=== PATIENT | female | born 1960 | race Hispanic/Latino ===

== ENCOUNTER 2018-09-23 17:49 | Emergency (ER) | payer BC ==
[2018-09-23 17:49] VITALS: BMI 28.3
[2018-09-23 17:53] VITALS: RESP 18; TEMP 98.9; O2SAT 100
[2018-09-23] MEDS ORDERED: Sodium Chloride 0.9% 1,000 ML IV STA (18:31)
--- NOTE | 2018-09-23 18:31 | ED PDOC ---
HPI: Back Time Seen by Provider: 09/23/18 18:09 Chief Complaint (Nursing): Back Pain Chief Complaint (Provider): Back Pain History Per: Patient Additional Complaint(s): Sudden onset right flank pain radiating to RLQ - onset 1 hour [employer] to ED Past Medical History Vital Signs: Last Vital Signs Temp 98.9 F 09/23/18 17:51 Pulse 67 09/23/18 17:51 Resp 18 09/23/18 17:51 BP 127/55 L 09/23/18 17:51 Pulse Ox 100 09/23/18 17:51 - Medical History PMH: Diverticulitis, Migraine Denies: Depression - Home Medications Home Medications: Ambulatory Orders Medication Instructions Recorded Eletriptan Hydrobromide [Relpax] 40 mg PO PRN PRN 12/10/12 Estrogen Patch 12/10/12 Methylprednisolone [Medrol] 4 mg PO DAILY #1 tab 12/10/12 Zolpidem Tartrate [Ambien] 10 mg PO HS 12/10/12 - Allergies Allergies/Adverse Reactions: Allergies Allergy/AdvReac Type Severity Reaction Status Date / Time No Known Allergies Allergy Verified 09/23/18 17:51 - ECG O2 Sat by Pulse Oximetry: 100 Disposition - Disposition
[2018-09-23 19:13] LABS: BASO # 0.1 K/uL (0.0-0.2); BASO % 1.3 % (0.0-2.0); EOS # 0.2 K/uL (0.0-0.7); EOS % 2.5 % (0.0-4.0); HEMOGLOBIN 13.4 g/dL (12.0-16.0); LYMPH # 2.6 K/uL (1.0-4.3); LYMPH % 41.9 % (20.0-40.0); MEAN CELL VOLUME 85.1 fl (81.0-99.0); MEAN CORPUSCULAR HEMOGLOBIN 28.1 pg (27.0-31.0); MEAN PLATELET VOLUME 8.8 fl (7.2-11.7); MONO # 0.6 K/uL (0.0-0.8); MONO % 9.1 % (0.0-10.0); NEUT # 2.8 K/uL (1.8-7.0); NEUT % 45.2 % (50.0-75.0); NRBC % 0.1 % (0.0-0.0); RBC 4.78 Mil/uL (3.80-5.20); RED CELL DISTRIBUTION WIDTH 13.4 % (11.5-14.5); WHITE BLOOD COUNT 6.3 K/uL (4.8-10.8)
[2018-09-23 19:14] LABS: SQUAMOUS EPITHIAL 17 /hpf (0-5); URINE BACTERIA RARE (<OCC); URINE BILIRUBIN NEGATIVE (NEGATIVE); URINE BLOOD LARGE (NEGATIVE); URINE CLARITY SLIGHTY-CLOUDY (Clear); URINE COLOR YELLOW (YELLOW); URINE GLUCOSE (UA) NEG (Normal); URINE LEUKOCYTE ESTERASE NEG Leu/uL (Negative); URINE PROTEIN 30 mg/dL (NEGATIVE); URINE UROBILINOGEN 0.2-1.0 mg/dL (0.2-1.0)
[2018-09-23 19:19] LABS: ALB/GLOB RATIO 1.2 (1.0-2.1); ALBUMIN 4.9 g/dL (3.5-5.0); AMYLASE 108 U/L (30-110); BLOOD UREA NITROGEN 15 mg/dl (7-17); CALCIUM 9.7 mg/dL (8.4-10.2); GFR NON-AFRICAN AMERICAN > 60; LIPASE 89 U/L (23-300)
[2018-09-23 19:25] LABS: ALT/SGPT 32 U/L (9-52); AST/SGOT 34 U/L (14-36)
--- NOTE | 2018-09-23 21:01 | ED PDOC ---
- Laboratory Results Result Diagrams: 09/23/18 18:45 09/23/18 18:45 - ECG O2 Sat by Pulse Oximetry: 100 - Progress ED Course And Treament: Case endorsed to staff writer from [facility] pending CT and re-eval CLINICAL HISTORY: Right flank pain. TECHNIQUE: Multiple axial, coronal, sagittal CT images were obtained through the abdomen and pelvis without administration of oral or IV contrast material. Total DLP equals 657.36 mGy.cm. COMMENTS: The liver is of uniform attenuation without mass or defect. There is no intra or extrahepatic biliary ductal dilatation. The spleen is normal. The gallbladder is within normal limits. The pancreas is of normal contour and attenuation characteristics. There is no evidence of adrenal mass. There is a 3.5 mm non-obstructing calculus noted in the mid to lower pole of the right kidney. There are several punctate, non-obstructing calculi noted in the mid pole of the right as well as left kidney. There is evidence of right hydronephrosis; however, no evidence of obstructing stone. It is most consistent with a recently passed calculus. There is no evidence for appendicitis. There is no bowel wall thickening. No evidence for small or large bowel obstruction. There is no evidence of abdominal ascites or lymphadenopathy. There is no evidence of intrinsic or extrinsic bladder mass. There is no pelvic ascites or lymphadenopathy. There are multiple uterine calcifications present consistent with fibroids. Images of the lung bases show no evidence of pleural or parenchymal mass. There are no pleural effusions. The bony structures are free of lytic or blastic lesions. IMPRESSION: 1. Bilateral renal calculi. 2. Right hydronephrosis; however, no evidence of obstructing stone. It is most consistent with a recently passed calculus.. 3. Multiple uterine calcifications consistent with fibroids. On re-eval, patient resting comfortably; states pain resolved. Tolerating PO Patient educated on findings, discharged with rx Naproxen, Zofran Advised follow up Urology Return precautions given Disposition - Clinical Impression Clinical Impression: Renal colic on right side, Uterine fibroid - POA Present On Arrival: None - Disposition Referrals: Acosta Banerjee MD [Staff Provider] - Disposition: Routine/Home Disposition Time: 21:10 Condition: IMPROVED Prescriptions: Naproxen [Naprosyn] 500 mg PO Q12 PRN #20 tablet PRN Reason: Pain, Moderate (4-7) Ondansetron ODT [Zofran ODT] 4 mg PO Q8 PRN #10 odt PRN Reason: Nausea/Vomiting Instructions: Renal Colic Forms: [facility] ([place])
[2018-09-23 21:06] VITALS: BP 131/86; PULSE 64
--- NOTE | 2018-09-24 10:03 | RAD ---
Date of service: 09/23/2018 HISTORY: abdominal pain COMPARISON: None available. FINDINGS: LUNGS: No active pulmonary disease. PLEURA: No significant pleural effusion identified, no pneumothorax apparent. CARDIOVASCULAR: No aortic atherosclerotic calcification present. Normal cardiac size. No pulmonary vascular congestion. OSSEOUS STRUCTURES: No significant abnormalities. VISUALIZED UPPER ABDOMEN: Normal. OTHER FINDINGS: None. IMPRESSION: No acute cardiopulmonary disease appreciated.
--- NOTE | 2018-09-24 11:25 | CT ---
Date of service: 09/23/2018 PROCEDURE: CT Abdomen and Pelvis without intravenous contrast HISTORY: R flank pain COMPARISON: None. TECHNIQUE: Helical CT of the abdomen and pelvis was performed without oral or intravenous contrast as per referring physician request. Coronal and sagittal reformats were generated. Contrast dose: None Radiation dose: Total exam DLP = 657.36 mGy-cm. This CT exam was performed using one or more of the following dose reduction techniques: Automated exposure control, adjustment of the mA and/or kV according to patient size, and/or use of iterative reconstruction technique. FINDINGS: LOWER THORAX: Unremarkable. LIVER: Unremarkable. No gross lesion or ductal dilatation. GALLBLADDER AND BILE DUCTS: Unremarkable. PANCREAS: Unremarkable. No gross lesion or ductal dilatation. SPLEEN: Unremarkable. ADRENALS: Unremarkable. No mass. KIDNEYS AND URETERS: Multiple punctate intrarenal calculi identified at the right greater than left kidney with mild hydronephrosis appreciated without hydroureter. No definite calculus is seen in the urinary bladder or definitively in the course of the right ureter which is somewhat obscured by vessels and bowel at the right hemipelvis. The pattern may reflect residual right hydronephrosis status post expulsion of right ureteral calculus even potentially from the urinary bladder. Trace right perinephric reaction is identified. No left hydronephrosis. VASCULATURE: Nonaneurysmal abdominal aortic calcific atherosclerotic changes are identified. BOWEL: Unremarkable. No obstruction. No gross mural thickening. APPENDIX: Unremarkable. Normal appendix. PERITONEUM: Unremarkable. No free fluid. No free air. LYMPH NODES: Unremarkable. No enlarged lymph nodes. BLADDER: Unremarkable. REPRODUCTIVE: Lobular partially calcified uterine changes suggestive of multiple fibroids. No suspicious adnexal findings grossly evident. BONES: No acute fracture. OTHER FINDINGS: None. IMPRESSION: 1. Likely expelled obstructing right ureteral calculus with residual mild hydronephrosis remaining at the right kidney including the pelvis. Multiple punctate intrarenal calculus seen in the right greater than left kidney with no left hydronephrosis appreciated. Urinary bladder is unremarkable appearing. 2. Fibroid uterus. Concordant preliminary report from [facility], 09/23/2018.
--- NOTE | 2018-09-24 13:01 | CARD ---
APPROVED REPORT Date of service: 09/23/2018 EKG Measurement Heart [id number] <Conclusion> Normal sinus rhythm Normal ECG
== END 2018-09-23 21:19 | disposition home or self-care (01) ==
LOC: H.ER 17:49
DX: N20.0 Calculus of kidney (principal); D25.9 Leiomyoma of uterus, unspecified
CPT/HCPCS: 71045; 74176; 80053; 81003; 82150; 83690; 85025; 93005; 96361; 96374; 99283; J2405; J7030